=== PATIENT | female | born 1980 | race Caucasian/White ===

== ENCOUNTER 2018-08-10 15:19 | Outpatient (REF) | payer OTHER, SELFPAY ==
[2018-08-10 23:13] LABS: ALT 19 U/L (12-78); AST 14 U/L (15-37); Albumin 3.6 g/dL (3.4-5.0); Alkaline Phosphatase 91 U/L (46-116); Anion Gap 13.8 mmol/L (3-11); BUN 18 mg/dL (7-18); Bilirubin, Total 0.5 mg/dL (0.2-1.0); CO2 24.2 mmol/L (21.0-32.0); CREATININE 0.62 mg/dL (0.55-1.02); Calcium 7.9 mg/dL (8.5-10.1); Chloride 103 mmol/L (98-107); Glucose 88 mg/dL (70-100); Potassium 3.6 mmol/L (3.5-5.1); Sodium 141 mmol/L (136-145); Total Protein 7.1 g/dL (6.4-8.2)
== END 2018-08-10 15:39 ==
LOC: NCHCN 15:19
PROVIDERS: PCP Nurse Practitioner; Visit Provider Specialist/Technologist Athletic Trainer
DX: R10.9 Unspecified abdominal pain (principal); I10 Essential (primary) hypertension; K21.9 Gastro-esophageal reflux disease without esophagitis
CPT/HCPCS: 80053

== ENCOUNTER 2018-08-11 15:47 | Outpatient (CLI) | payer OTHER, SELFPAY ==
[2018-08-11 17:11] LABS: Magnesium 2.1 mg/dL (1.8-2.4); TSH (W/Ref FT4) 2.72 uIU/mL (0.358-3.74)
[2018-08-13 06:22] LABS: Vitamin D 25 Total 14.1 ng/ml (30-100)
[2018-08-13 10:08] LABS: Parathyroid Hormone,Intact 74 pg/ml (19-88)
== END 2018-08-11 16:07 ==
PROVIDERS: PCP Nurse Practitioner; Visit Provider Specialist/Technologist Athletic Trainer
DX: E83.51 Hypocalcemia (principal)
CPT/HCPCS: 36415; 82306; 83735; 83970; 84443

== ENCOUNTER 2018-08-12 07:51 | Outpatient (REF) | payer OTHER, SELFPAY ==
[2018-08-13 13:34] LABS: Helicobacter pylori Ag, Feces Negative (NEGAT)
== END 2018-08-12 08:11 ==
LOC: NCHCN 07:51
PROVIDERS: PCP Nurse Practitioner; Visit Provider Specialist/Technologist Athletic Trainer
DX: K21.9 Gastro-esophageal reflux disease without esophagitis (principal)
CPT/HCPCS: 87338

== ENCOUNTER 2018-08-18 00:59 | Outpatient (CLI) | payer OTHER, SELFPAY ==
--- NOTE | 2018-08-18 07:40 | DI.US_ITS ---
SYMPTOM/DIAGNOSIS: UPPER ABD PAIN, WORSE WITH FATTY MEALS ABDOMEN ULTRASOUND: Routine examination. No priors for comparison. The visualized liver parenchyma is normal in appearance. There is no evidence of cholelithiasis. The common bile duct is of normal diameter. The pancreas and spleen appear intact. No renal abnormality is seen. The abdominal aorta is of normal diameter. Normal appearance of IVC. CONCLUSION: Normal abdominal ultrasound.
== END 2018-08-18 01:19 ==
PROVIDERS: PCP Nurse Practitioner; Visit Provider Specialist/Technologist Athletic Trainer
DX: R10.11 Right upper quadrant pain (principal)
CPT/HCPCS: 76700

== ENCOUNTER 2018-11-04 08:46 | Outpatient (REF) | payer OTHER, SELFPAY ==
[2018-11-04 17:41] LABS: Anion Gap 8.3 mmol/L (3-11); BUN 11 mg/dL (7-18); CO2 26.7 mmol/L (21.0-32.0); CREATININE 0.71 mg/dL (0.55-1.02); Calcium 8.4 mg/dL (8.5-10.1); Chloride 102 mmol/L (98-107); Glucose 116 mg/dL (70-100); Potassium 3.3 mmol/L (3.5-5.1); Sodium 137 mmol/L (136-145)
[2018-11-05 04:42] LABS: Vitamin D 25 Total 25.9 ng/ml (30-100)
== END 2018-11-04 09:06 ==
LOC: NCHCN 08:46
PROVIDERS: PCP Nurse Practitioner; Visit Provider Specialist/Technologist Athletic Trainer
DX: E55.9 Vitamin D deficiency, unspecified (principal); E83.51 Hypocalcemia
CPT/HCPCS: 36415; 80048; 82306

== ENCOUNTER 2018-12-02 00:41 | Outpatient (CLI) | payer OTHER, SELFPAY ==
--- NOTE | 2018-12-02 13:00 | DI.US_ITS ---
SYMPTOMS/DIAGNOSIS: ABDOMINAL PAIN, R10.9, MIDLINE WHEN EXERCISING PELVIC ULTRASOUND: Transabdominal and transvaginal exams were performed. The uterus measures 7.1 x 4.5 x 5.6 cm and is retroverted. No fibroids are seen. The endometrial stripe measures 6 mm in thickness. The ovaries are normal in size and appearance. There is no free fluid or hydronephrosis. IMPRESSION: Pelvic ultrasound is within normal limits.
== END 2018-12-02 01:01 ==
PROVIDERS: PCP Nurse Practitioner; Visit Provider Nurse Practitioner Family
DX: R10.9 Unspecified abdominal pain (principal)
CPT/HCPCS: 76830; 76856

== ENCOUNTER 2019-10-08 14:57 | Outpatient (REF) | payer OTHER, SELFPAY ==
--- NOTE | 2019-10-08 14:15 | PAPFT_PTH ---
PATIENT: Nani Coley LOC: [facility] U#:[id number] AGE/SX: 39/F ROOM: RE10/08/[address]: Azalea William : 1980 BED: DIS: 10/08/2019 SPEC #: [id number] RECD: 10/11/19 13:00 STATUS: JENNY REMarie #: [id number] KELSI: 10/08/19 14:[address]: Azalea William DEPT: [facility] Cytology RECD BY: Ana Urbano ENTERED: 10/11/19 13:00 SP TYPE: PAPFT OTHR DR: Maddie Estrada Tissues: 1 - CX/ENDOCX FOR PAP SMEARS Procedures: PAP THIN PREP/UVM Screening HPV DNA PROBE Comments: [id number]
== END 2019-10-08 15:17 ==
LOC: NCHCN 14:57
PROVIDERS: PCP Nurse Practitioner; Visit Provider Family Medicine
DX: Z12.4 Encounter for screening for malignant neoplasm of cervix (principal); Z11.51 Encounter for screening for human papillomavirus (HPV); Z00.00 Encounter for general adult medical examination without abnormal findings; Z01.419 Encounter for gynecological examination (general) (routine) without abnormal findings
CPT/HCPCS: 88142; 87624

== ENCOUNTER 2019-10-25 12:58 | Outpatient (CLI) | payer OTHER, SELFPAY ==
[2019-10-27 03:15] LABS: COVID-19 RT-PCR Result NEGATIVE (Negative)
== END 2019-10-25 13:18 ==
PROVIDERS: PCP Nurse Practitioner; Visit Provider Nurse Practitioner Family
DX: M79.10 Myalgia, unspecified site (principal); R11.0 Nausea; R11.10 Vomiting, unspecified; R50.9 Fever, unspecified; R53.83 Other fatigue
CPT/HCPCS: U0003

== ENCOUNTER 2020-01-11 19:14 | Outpatient (REF) | payer SELFPAY ==
[2020-01-11 21:11] LABS: HCT 42.8 % (36.0-46.0); HGB 14.6 g/dL (11.2-15.7); MCH 29.1 pg (27.0-33.0); MCHC 34.1 % (32.0-36.0); MCV 85.4 fL (80-95); MPV 10.3 fL (8.0-11.0); Platelet Count 232 10^3/uL (130-400); RBC 5.01 10^6/uL (3.93-5.22); RDW 12.5 % (11.7-14.6); RDW-SD 38.4 fL
[2020-01-11 21:30] LABS: ALT 20 U/L (14-59); AST 18 U/L (15-37); Albumin 3.9 g/dL (3.4-5.0); Alkaline Phosphatase 96 U/L (46-116); Anion Gap 7.9 mmol/L (3-11); BUN 11 mg/dL (7-18); Bilirubin, Total 0.5 mg/dL (0.2-1.0); CO2 28.1 mmol/L (21.0-32.0); CREATININE 0.65 mg/dL (0.55-1.02); Calcium 8.7 mg/dL (8.5-10.1); Chloride 103 mmol/L (98-107); Glucose 87 mg/dL (74-106); Potassium 3.8 mmol/L (3.5-5.1); Sodium 139 mmol/L (136-145); Total Protein 7.5 g/dL (6.4-8.2)
== END 2020-01-11 19:34 ==
LOC: NCHCN 19:14
PROVIDERS: PCP Family Medicine; Visit Provider Family Medicine
DX: E83.51 Hypocalcemia (principal); I10 Essential (primary) hypertension
CPT/HCPCS: 80053; 85027

== ENCOUNTER 2020-08-30 09:56 | Emergency (ER) | payer OTHER, SELFPAY ==
[2020-08-30] VITALS (26 sets, daily range): BP systolic 136–180; BP diastolic 80–101; PULSE 52–71; RESP 10–20; O2SAT 97–100
--- NOTE | 2020-08-30 09:45 | RT.EKG_ITS ---
APPROVED REPORT Exam: Resting ECG Reason for Exam: Palpitations, Patient Location: E HR:67 bpm ECG Measurements Heart Rate 67 AXIS AR 140 P 24 QRSd 97 QRS -8 QT 425 T 49 QTc 439 Conclusion Sinus rhythm...normal P axis, V-rate 60- 99 Ventricular premature complex...V complex w/ short R-R interval
--- NOTE | 2020-08-30 10:19 | ED.GENADUL_ITS ---
Discharge Plan Disposition Patient Disposition: HOME Condition: Stable Discharge Details Clinical Impression: Palpitations, Hypokalemia Primary Care Provider: Azalea William ED Provider: Denisa Zhu Home Meds and New Rx's Prescriptions: Continued omeprazole 20 mg capsule,delayed release(DR/EC) 20 mg PO DAILY RF: 0 cholecalciferol (vitamin D3) 1,000 unit capsule 1,000 unit PO DAILY RF: 0 omeprazole 40 mg capsule,delayed release(DR/EC) 40 mg PO DAILY RF: 0 hydrochlorothiazide 25 mg tablet 25 mg PO BID RF: 0 diltiazem HCl 240 mg capsule,extended release 24 hr 240 mg PO DAILY RF: 0 Discharge Instructions Instructions: Heart Palpitations (ED), Hypokalemia (ED) Additional Instructions: At this time the work-up is largely within normal limits she potassium was slightly low with a level of 3.3. You are given 40 mEq of potassium p.o. here in the department. Follow up with primary care provider in 3-5 days. Return to ED sooner if any worsening or concerns. Increase oral fluids. You are having an occasional PVC on cardiac monitoring. Please return if any chest pain, dizziness or any worsening. Referrals: Azalea William [Primary Care Provider] - Discharge Data Discharge Date/Time-TO BE ENTERED AT DEPARTURE: 08/30/20 13:19 Medical Decision Making 39-year-old female with a family history of atrial fibrillation who takes diltiazem every 3 days due to dizziness presents with palpitations which have been ongoing since yesterday intermittently. Patient denies any chest pain she does describe dyspnea denies any fever chills dizziness. She reports feeling exhausted. She was sent here by her PCP [facility]. She does have an occasional PVC on EKG. She does report that she can feel the PVC. She has a past medical history of hypertension, GERD, abdominal pain, anxiety EKG shows sinus rhythm with PVC, at this time work-up ordered including CBC, CMP, serial troponins. Work-up is largely benign and initial troponin within normal limits. Potassium 3.3 did give oral potassium 40 mEq p.o. x1 here in department. Patient remained hemodynamically stable throughout stay no further arrhythmias noted. Instructed to follow-up with PCP in 3 to 5 days. Upon reevaluation patient feeling better discussed hypokalemia and follow-up verbalized understanding. HPI General Mode of arrival: ambulatory . Date/Time Provider Initiated Documentation: 08/30/20 09:58 . Limitations to Documentation: no limitations . HPI Narrative: 39-year-old female with a family history of atrial fibrillation who takes diltiazem every 3 days due to dizziness presents with palpitations which have been ongoing since yesterday intermittently. Patient denies any chest pain she does describe dyspnea denies any fever chills dizziness. She reports feeling exhausted. She was sent here by her [facility]. She does have an occasional PVC on EKG. She does report that she can feel the PVC. She has a past medical history of hypertension, GERD, abdominal pain, anxiety Related Data Home Medications Medication Instructions Recorded Confirmed cholecalciferol (vitamin D3) 25 1,000 unit PO DAILY 03/04/19 08/30/20 mcg (1,000 unit) capsule diltiazem HCl 240 mg capsule,24 240 mg PO DAILY 03/04/19 08/30/20 hr,extended release hydrochlorothiazide 25 mg tablet 25 mg PO BID 03/04/19 08/30/20 omeprazole 20 mg capsule,delayed 20 mg PO DAILY 03/04/19 release omeprazole 40 mg capsule,delayed 40 mg PO DAILY 03/04/19 08/30/20 release Allergies Allergy/AdvReac Type Severity Reaction Status Date / Time lisinopril Allergy Severe Headache Verified 08/30/20 10:19 General Stated Complaint: Palpitatns LUIS: 3 Review of Systems Narrative: Constitutional: Negative for weight loss, alert and oriented, well groomed, normal body habitus, appears comfortable. HEENT: Denies trauma, headaches, blurry vision, nasal discharge, sore throat, trouble swallowing. Chest: Denies chest pain. Positive history of hypertension, palpitations since yesterday, does take diltiazem last taken on Friday. Respiratory: Denies Shortness of breath, cough, hemoptysis. GI: Denies abdominal pain, nausea, vomiting, diarrhea, constipation. : Denies dysuria, hematuria, flank pain, rectal bleeding. Neuro: Denies dizziness, blurry vision, weakness, syncope, headache or facial numbness. Hematologic: Denies easy bruising, intolerance to heat or cold, hair loss. [facility] Medical History Abdominal pain GERD (gastroesophageal reflux disease) Hypertension Hypocalcemia Ovarian cyst Vitamin D deficiency Social History Smoking risk assessment performed?: No Exam Narrative Exam Narrative: Constitutional: Alert and oriented x3. Appears stated age. Normal body habitus. Head: Normocephalic, no trauma. Eyes: Pupils PERRLA, Red reflex noted, EOM's intact. Eyelids symmetrical without lesions, discharge, or swelling. ENT: Bilateral TM's WNL, External ear normal to inspection, no mastoid TTP, swelling, or erythema, Nasal turbinates WNL, no nasal discharge. Normal dentition, Posterior pharynx WNL, no exudate. Chest: RRR, occasional PVC normal S1, S2, distal pulses intact. Resp: Lungs clear to auscultation bilaterally, no wheezes, rales, or rhonchi. Musculoskeletal: Normal gait, 5/5 strength to all four extremities. Skin: No suspicious rashes or lesions. Capillary refill less than 2 sec. Neurologic: Cranial nerves II-XII intact. Alert and oriented x 3. DTR's intact. Hematologic/Lymphatic: No ecchymosis, no lymphadenopathy. Course Vital Signs Vital signs: Vital Signs Pulse 69 08/30/20 10:15 Respiratory Rate 16 08/30/20 10:15 Blood Pressure 180/89 H 08/30/20 10:15 Pulse Oximetry 100 08/30/20 10:15 Pulse 69 08/30/20 10:15 Respiratory Rate 16 08/30/20 10:15 Blood Pressure 180/89 H 08/30/20 10:15 Blood Pressure Position Sitting 08/30/20 10:15 Pulse Oximetry 100 08/30/20 10:15 Oxygen Delivery Method Room Air 08/30/20 10:15 Oxygen Flow Rate 0 08/30/20 10:15
[2020-08-30 10:36] LABS: Abs Immature Grans 0.02 10^3/uL (0.0-0.06); Absolute Basophil Count 0.02 10^3/uL (0.0-0.2); Absolute Eosinophil Count 0.26 10^3/uL (0.0-0.7); Absolute Lymphocyte Count 1.92 10^3/uL (1.2-3.4); Absolute Monocyte Count 0.79 10^3/uL (0.1-0.8); Absolute Neutrophil Count 3.74 10^3/uL (1.2-6.7); Basophils % 0.3; Eosinophils % 3.9; HCT 42.8 % (36.0-46.0); HGB 14.2 g/dL (11.2-15.7); Immature Grans % 0.3; Lymphocytes % 28.4; MCH 28.5 pg (27.0-33.0); MCHC 33.2 % (32.0-36.0); MCV 85.9 fL (80-95); MPV 9.7 fL (8.0-11.0); Monocytes % 11.7; Neutrophils % 55.4; Nucleated RBC 0 %; Platelet Count 224 10^3/uL (130-400); RBC 4.98 10^6/uL (3.93-5.22); RDW 12.3 % (11.7-14.6); RDW-SD 38.6 fL; WBC 6.75 10^3/uL (4.4-10.8)
[2020-08-30 11:09] LABS: ALT 19 U/L (14-59); AST 17 U/L (15-37); Albumin 3.7 g/dL (3.4-5.0); Alkaline Phosphatase 86 U/L (46-116); Anion Gap 7.6 mmol/L (3-11); BUN 14 mg/dL (7-18); Bilirubin, Total 0.4 mg/dL (0.2-1.0); CO2 30.4 mmol/L (21.0-32.0); CREATININE 0.7 mg/dL (0.55-1.02); Calcium 8.5 mg/dL (8.5-10.1); Chloride 103 mmol/L (98-107); Glucose 104 mg/dL (74-106); Potassium 3.3 mmol/L (3.5-5.1); Sodium 141 mmol/L (136-145); Total Protein 7.5 g/dL (6.4-8.2); Troponin I < 0.05 ng/mL (<0.06)
[2020-08-30] MEDS: Potassium Chloride 20 MEQ TABCR 40 MEQ PO (11:29)
== END 2020-08-30 13:19 | disposition home or self-care (01) ==
PROVIDERS: Emergency Provider Registered Nurse Emergency; PCP Family Medicine
DX: R00.2 Palpitations (principal); E87.6 Hypokalemia
CPT/HCPCS: 36415; 80053; 93005; 99283; 83735; 84484; 85025; 93010

== ENCOUNTER 2021-02-28 16:38 | Outpatient (REF) | payer OTHER, SELFPAY ==
[2021-02-28 22:15] LABS: HCT 40.5 % (36.0-46.0); HGB 13.3 g/dL (11.2-15.7); MCH 28.5 pg (27.0-33.0); MCHC 32.8 % (32.0-36.0); MCV 86.9 fL (80-95); MPV 10.4 fL (8.0-11.0); Platelet Count 243 10^3/uL (130-400); RBC 4.66 10^6/uL (3.93-5.22); RDW 11.9 % (11.7-14.6); RDW-SD 37.9 fL; WBC 7.41 10^3/uL (4.4-10.8)
[2021-02-28 22:48] LABS: ALT 17 U/L (14-59); AST 15 U/L (15-37); Albumin 3.9 g/dL (3.4-5.0); Alkaline Phosphatase 90 U/L (46-116); Anion Gap 7.5 mmol/L (3-11); BUN 16 mg/dL (7-18); Bilirubin, Total 0.3 mg/dL (0.2-1.0); CO2 29.5 mmol/L (21.0-32.0); CREATININE 0.6 mg/dL (0.55-1.02); Calcium 8.3 mg/dL (8.5-10.1); Chloride 103 mmol/L (98-107); FREE T4 1.04 ng/dL (0.76-1.46); Glucose 85 mg/dL (74-106); Potassium 3.4 mmol/L (3.5-5.1); Sodium 140 mmol/L (136-145); TSH 1.13 uIU/mL (0.36-3.74); Total Protein 7.4 g/dL (6.4-8.2)
== END 2021-02-28 16:39 | disposition home or self-care (01) ==
LOC: NCHCN 16:38
PROVIDERS: PCP Family Medicine; Visit Provider Nurse Practitioner Family
DX: R00.2 Palpitations (principal)
CPT/HCPCS: 80053; 85027; 84439; 84443

== ENCOUNTER 2021-03-02 09:25 | Outpatient (CLI) | payer OTHER, SELFPAY ==
--- NOTE | 2021-03-26 08:37 | W.CARDEVENT ---
Date of service: 03/26/21 Time of Service: 08:37 Cardiac Event Recorder Referring Provider:: Kaylin Bates Indications:: Palpitations Cardiac Event Note: This is a 14-day event monitor ordered for palpitations Predominant rhythm was sinus with an average heart rate of 63. Minimum was 48, maximum 125 There were no supraventricular dysrhythmias There were very rare ventricular ectopic beats There was no atrial fibrillation, no high-grade AV block, no pauses greater than 3 seconds No patient symptoms were reported
== END 2021-03-02 09:26 | disposition home or self-care (01) ==
PROVIDERS: PCP Family Medicine; Visit Provider Nurse Practitioner Family
DX: R00.2 Palpitations (principal)
CPT/HCPCS: 93246

== ENCOUNTER 2021-04-23 15:51 | Outpatient (REF) | payer OTHER, SELFPAY ==
[2021-04-26 15:24] LABS: 5-Hydroxyindoleacetic Acid, U 6.5 mg/24 h (<=7.1); Urine Volume 2500 mL
[2021-04-26 20:47] LABS: Metanephrines, U 150 mcg/24 h; Normetanephrine, U 333 mcg/24 h; Total Metanephrines, U 483 mcg/24 h; Urine Volume 2500 mL
[2021-04-27 12:02] LABS: Urine Volume 2500 mL
== END 2021-04-23 15:52 | disposition home or self-care (01) ==
LOC: NCHCN 15:51
PROVIDERS: PCP Family Medicine; Visit Provider Nurse Practitioner Family
DX: R00.2 Palpitations (principal); R23.2 Flushing
CPT/HCPCS: 81050; 82384; 83497; 83835

== ENCOUNTER 2022-05-10 01:10 | Outpatient (CLI) | payer OTHER, SELFPAY ==
[2022-05-10 15:44] LABS: ALT 19 U/L (14-59); AST 21 U/L (15-37); Albumin 3.7 g/dL (3.4-5.0); Alkaline Phosphatase 95 U/L (46-116); Anion Gap 7.8 mmol/L (3-11); BUN 13 mg/dL (7-18); Bilirubin, Total 0.2 mg/dL (0.2-1.0); CO2 31.2 mmol/L (21.0-32.0); CREATININE 0.9 mg/dL (0.55-1.02); Calcium 8.4 mg/dL (8.5-10.1); Chloride 102 mmol/L (98-107); Estimated GFR 81.86 (mL/min/1.73m2); Glucose 101 mg/dL (74-106); Sodium 141 mmol/L (136-145); Total Protein 7.1 g/dL (6.4-8.2)
[2022-05-10 15:50] LABS: Potassium 2.7 mmol/L (3.5-5.1)
[2022-05-15 17:50] LABS: Renin Activity, Plasma <0.6 ng/mL/h
== END 2022-05-10 01:11 | disposition home or self-care (01) ==
LOC: LBO 01:11
PROVIDERS: PCP Family Medicine; Visit Provider Nurse Practitioner Family
DX: I10 Essential (primary) hypertension (principal)
CPT/HCPCS: 36415; 80053; 82088; 84244

== ENCOUNTER 2022-05-10 16:29 | Emergency (ER) | payer OTHER, SELFPAY ==
[2022-05-10] VITALS (102 sets, daily range): BP systolic 141–189; BP diastolic 84–102; PULSE 54–95; RESP 11–26; TEMP 36.7–36.8; O2SAT 96–100
--- NOTE | 2022-05-10 16:30 | RT.EKG_ITS ---
APPROVED REPORT Exam: Resting ECG Reason for Exam: palpitations Patient Location: E HR:71 bpm ECG Measurements Heart Rate 71 AXIS VA 140 P 30 QRSd 98 QRS -12 QT 418 T 43 QTc 458 Conclusion Sinus rhythm...normal P axis, V-rate 60- 99 Atrial premature complexes in couplets...pair SV complexes w/ short R-R Sinus pause...long R-R interval, normal QRSd Normal [place] I have reviewed and interpreted ECG and agree with software generated interpretation. There are no significant changes compared to prior EKG performed on 08/30/2020 at 10:14.
--- NOTE | 2022-05-10 16:37 | W.ED.GENAD ---
Discharge Plan Disposition Patient Disposition: Home Discharge Details Clinical Impression: Hypokalemia Primary Care Provider: Azalea William ED Provider: Ronak Esteves [place] Meds and New Rx's Prescriptions: New potassium chloride 20 mEq tablet extended release 20 meq PO BID Qty: 5 0RF Continued hydrochlorothiazide 25 mg tablet 25 mg PO BID diltiazem HCl 240 mg capsule,extended release 24 hr 240 mg PO DAILY Discharge Instructions Instructions: Hypokalemia (ED) Additional Instructions: Your potassium was low this afternoon on lab check. You received IV and oral potassium this evening. Your potassium is better but still a little low. We will continue you on potassium twice a day over the weekend. Please sweet pickled fruit maker your prescription tomorrow. Call your primary care on Friday for repeat potassium draw. Return to ED for any tingling, weakness, muscle cramping, syncope, other concerns. Medical Decision Making I reviewed the patient's CMP from this afternoon. She has normal kidney function and all of her other electrolytes were fine. I have added a magnesium to this draw. We will plan 20 mEq of potassium IV and 40 orally with repeat potassium level 2 hours postinfusion. Patient's EKG is sinus rhythm with PAC and some pauses otherwise normal intervals and axis, normal ST. Magnesium level was normal from this afternoon. Patient received her potassium and a repeat level was drawn 1 hour after the second infusion. Potassium is now 3.3 which is still low but reasonable for discharge. We will continue p.o. potassium supplementation over the weekend. She will follow-up with primary care Friday for repeat potassium. Return precautions provided. Lab Data Lab results reviewed: Yes I reviewed the patient's lab results. ECG Data Attestation: I personally reviewed and interpreted this ECG (s) as follows: Prior ECG tracings: available for review Interpretation: see EKG, no change HPI General Mode of arrival: ambulatory. Date/Time Provider Initiated Documentation: 05/10/22 16:37. Limitations to Documentation: no limitations. Information obtained by: patient. HPI Narrative: Patient presents to ED from home on referral from her PCP for low potassium. Patient reports having blood work done for another concern. She was called this afternoon and told to come to ED for a low potassium of 2.9. Patient reports having more palpitations than usual for the last week but really nothing out of the ordinary otherwise. She has been ill this month with sinus and bronchitis type symptoms and has been on prednisone and 2 different antibiotics. Currently off everything. She does continue hydrochlorothiazide for her blood pressure. She has had palpitations and had a 14-day event monitor which was unremarkable. She denies having any vomiting or diarrhea. She states that she has been eating and drinking well. She has no paresthesias, weakness, cramps. Related Data Home Medications Medication Instructions Recorded Confirmed diltiazem HCl 240 mg capsule,24 240 mg PO DAILY 03/04/19 05/10/22 hr,extended release hydrochlorothiazide 25 mg tablet 25 mg PO BID 03/04/19 05/10/22 potassium chloride 20 mEq 20 meq PO BID #5 tabs 05/10/22 tablet,extended release Previous Rx's Medication Instructions Recorded potassium chloride 20 mEq 20 meq PO BID #5 tabs 05/10/22 tablet,extended release Allergies Allergy/AdvReac Type Severity Reaction Status Date / Time lisinopril Allergy Severe Headache Verified 08/30/20 10:19 General LUIS: 3 Review of Systems Narrative: per HPI PFSH All Active Problems (Updated 05/10/22 @ 21:14 by Ronak Esteves MD) Palpitations (Acute) Hypokalemia (Acute) Fatigue (Acute) Myalgia (Acute) Vomiting (Acute) Nausea (Acute) Fever (Acute) Medical History (Updated 05/10/22 @ 21:14 by Ronak Esteves MD) GERD (gastroesophageal reflux disease) Hypertension Hypocalcemia Ovarian cyst Vitamin D deficiency Social History Smoking/Tobacco Use Status: Never Smoking risk assessment performed?: Yes Alcohol Intake: current Alcohol Intake frequency: holidays/special occasions only Substance use type: does not use Do you feel safe at home: Yes Do you feel safe in your relationship?: Yes Exam Narrative Exam Narrative: Const: WDWN female in NAD. HEENT: NC/AT. Normal facial exam. Eyes: Normal conjunctiva and sclera. Neck: Supple. Trachea midline. Lungs: Normal respiratory effort. Lungs are clear. Cor: RRR without murmur/gallop. Good radial pulses. GI: Soft. NT/ND. No guarding or rebound. Neuro: A+O x 3. Normal speech, mentation, gait. Cranial nerves II - XII grossly intact. No gross motor or sensory deficit. Ext: No C/C/E. Skin: Warm and dry without rash.
[2022-05-10] MEDS: Potassium Chloride 20 MEQ TABCR 40 MEQ PO (17:20)
[2022-05-10] MEDS: POTASSIUM CHLORIDE 10 MEQ/100 ML BAG 100 MEQ IVPB ×2 (17:20→18:29)
[2022-05-10] MEDS: Normal Saline 1,000 ML 150 ML IV (17:21)
[2022-05-10 21:04] LABS: Potassium 3.3 mmol/L (3.5-5.1)
== END 2022-05-10 21:24 | disposition home or self-care (01) ==
PROVIDERS: Emergency Provider Emergency Medicine; PCP Family Medicine
DX: E87.6 Hypokalemia (principal); I49.1 Atrial premature depolarization; I10 Essential (primary) hypertension
CPT/HCPCS: 93005; 96365; 96366; 99284; 83735; 84132; 93010; J3480

== ENCOUNTER 2022-05-13 16:33 | Outpatient (REF) | payer OTHER, SELFPAY ==
[2022-05-13 20:51] LABS: Potassium 3.4 mmol/L (3.5-5.1)
== END 2022-05-13 16:34 | disposition home or self-care (01) ==
LOC: NCHCN 16:33
PROVIDERS: PCP Family Medicine; Visit Provider Family Medicine
DX: E87.6 Hypokalemia (principal)
CPT/HCPCS: 84132

== ENCOUNTER 2022-06-10 15:57 | Outpatient (REF) | payer OTHER, SELFPAY ==
[2022-06-10 22:03] LABS: Anion Gap 7.9 mmol/L (3-11); BUN 11 mg/dL (7-18); CO2 29.1 mmol/L (21.0-32.0); CREATININE 0.7 mg/dL (0.55-1.02); Calcium 9.1 mg/dL (8.5-10.1); Chloride 104 mmol/L (98-107); Estimated GFR 110.67 (mL/min/1.73m2); Glucose 95 mg/dL (74-106); Potassium 3.7 mmol/L (3.5-5.1); Sodium 141 mmol/L (136-145)
== END 2022-06-10 15:58 | disposition home or self-care (01) ==
LOC: NCHCN 15:57
PROVIDERS: PCP Family Medicine; Visit Provider Nurse Practitioner Family
DX: E87.6 Hypokalemia (principal)
CPT/HCPCS: 80048

== ENCOUNTER 2022-12-12 18:18 | Outpatient (REF) | payer OTHER, SELFPAY ==
[2022-12-12 15:37] LABS: MCH 29.8 pg (27.0-33.0); MCHC 34.8 % (32.0-36.0); MCV 86 fL (80-95); MPV 10.5 fL (8.0-11.0); Platelet Count 262 10^3/uL (130-400); RBC 5.37 10^6/uL (3.93-5.22); RDW 11.6 % (11.7-14.6); RDW-SD 36.2 fL; WBC 6.35 10^3/uL (4.4-10.8)
[2022-12-12 16:15] LABS: ALT 20 U/L (14-59); AST 16 U/L (15-37); Albumin 4.3 g/dL (3.4-5.0); Alkaline Phosphatase 95 U/L (46-116); Anion Gap 10.9 mmol/L (3-11); BUN 13 mg/dL (7-18); Bilirubin, Total 0.7 mg/dL (0.2-1.0); CO2 26.1 mmol/L (21.0-32.0); CREATININE 0.8 mg/dL (0.55-1.02); Calcium 9.2 mg/dL (8.5-10.1); Calculated LDL 166 mg/dL (<100); Chloride 101 mmol/L (98-107); Cholesterol 241 mg/dL (<200); Glucose 85 mg/dL (74-106); HDL Cholesterol 59 mg/dL (40-60); Potassium 3.8 mmol/L (3.5-5.1); Sodium 138 mmol/L (136-145); Total Protein 8.1 g/dL (6.4-8.2); Triglyceride 83 mg/dL (<150)
[2022-12-12 16:36] LABS: Vitamin D 25 Total 62.1 ng/mL (30-100)
== END 2022-12-12 18:19 | disposition home or self-care (01) ==
LOC: NCHCN 18:18
PROVIDERS: PCP Family Medicine; Visit Provider Nurse Practitioner Family
DX: Z00.00 Encounter for general adult medical examination without abnormal findings (principal); I10 Essential (primary) hypertension; E83.51 Hypocalcemia; E87.6 Hypokalemia; E55.9 Vitamin D deficiency, unspecified
CPT/HCPCS: 80053; 80061; 82306; 85027

== ENCOUNTER → 2022-12-16 01:02 | Outpatient (CLI) | payer OTHER, SELFPAY ==
--- NOTE | 2022-12-16 | DI.MAMMO_ITS ---
Exam(s) MAMMO SCREENING EXAM: MAMMO SCREENING CLINICAL HISTORY: SCREENING, Z12.31. TECHNIQUE: Bilateral full field digital CC and MLO mammographic images were obtained with 3D tomosyn thesis and utilizing computer aided detection (CAD). COMPARISON: None. This is a baseline mammogram on this 42-year-old patient FINDINGS: Fibroglandular tissue pattern is dense bilaterally, this somewhat decreasing the sensitivity of the m ammogram for finding hidden underlying lesions. 3D imaging reveals multiple nodules bilaterally. The largest in the left breast measures approximate ly 3 by 2.7 cm, located 2 cm in from the nipple. Another smaller 1.3 by 0.8 cm is located more super iorly, proximally 4 cm in from the nipple. In the opposite-right breast there are multiple nodules also evident, largest measuring approximately 1.0 x 0.9 cm and located 2.5 cm in from the nipple on the MLO view. There are no malignant-appearing microcalcification groups in either breast. No significant architectural distortion or skin thickening-traction. IMPRESSION: Dense bilateral fibroglandular tissue. Multiple bilateral well-defined nodules, the largest measurin g approximately 3 x 2.7 cm. Bilateral breast ultrasound recommended BI-RADS Category 0 - Assessment Incomplete: Need additional imaging evaluation Breast Density - Category C - Heterogeneously dense Breast density Category C or D implies that the patient has dense breast tissue. Dense breast tissue can make it harder to find cancer on a mammogram. Dense breast tissue is also associated with an incr eased risk of breast cancer. This information about the result of the mammogram report was provided to the patient to raise their awareness. Use this report when you speak with the patient about their risks for breast cancer, which includes their family history. At that time, you may recommend additional screening tests (Ultrasoun d or MRI) as these tests may add significant information. A negative radiographic report should not delay biopsy if a dominant or clinically suspicious mass is present. Up to ten percent of cancers are not identified on mammography. A negative report may reinforce clinical impression. Adenosis and dense breasts may obscure an underlying neoplasm. False positive reports average 6 to 10%. Patient will receive a letter notifying them of these results.
== END ==
PROVIDERS: PCP Family Medicine; Visit Provider Nurse Practitioner Family
DX: Z12.31 Encounter for screening mammogram for malignant neoplasm of breast (principal); N63.10 Unspecified lump in the right breast, unspecified quadrant; N63.20 Unspecified lump in the left breast, unspecified quadrant
CPT/HCPCS: 77063; 77067

== ENCOUNTER 2023-12-19 10:21 | Outpatient (REF) | payer OTHER, SELFPAY ==
[2023-12-19 15:13] LABS: HCT 42.1 % (36.0-46.0); HGB 14.5 g/dL (11.2-15.7); MCH 29.8 pg (27.0-33.0); MCHC 34.4 % (32.0-36.0); MCV 87 fL (80-95); MPV 10.2 fL (8.0-11.0); Platelet Count 217 10^3/uL (130-400); RBC 4.86 10^6/uL (3.93-5.22); RDW 11.7 % (11.7-14.6); RDW-SD 37.2 fL; WBC 6.53 10^3/uL (4.4-10.8)
[2023-12-19 16:09] LABS: Iron 178 ug/dL (50-170); Total Iron Binding Capacity 381 ug/dL (250-450); Transferrin Sat 47 % (15-50)
[2023-12-19 16:10] LABS: ALT 17 U/L (14-59); AST 15 U/L (15-37); Alkaline Phosphatase 95 U/L (46-116); Anion Gap 7.4 mmol/L (3-11); BUN 11 mg/dL (7-18); Bilirubin, Total 0.78 mg/dL (0.2-1.0); CO2 26.6 mmol/L (21.0-32.0); CREATININE 0.7 mg/dL (0.55-1.02); Calcium 8.9 mg/dL (8.5-10.1); Calculated LDL 142 mg/dL (<100); Chloride 104 mmol/L (98-107); Cholesterol 209 mg/dL (<200); Ferritin 41 ng/mL (8-252); Glucose 87 mg/dL (74-106); HDL Cholesterol 53 mg/dL (40-60); Potassium 4.1 mmol/L (3.5-5.1); Sodium 138 mmol/L (136-145); TSH (W/Ref FT4) 1.83 uIU/mL (0.36-3.74); Total Protein 7.5 g/dL (6.4-8.2); Triglyceride 71 mg/dL (<150); Vitamin D 25 Total 43.7 ng/mL (30-100)
[2023-12-19 16:14] LABS: COMMENT (LAB VIEW ONLY) 28.01 mg/dL; Microalb ug/mg Crea 11.4 ug/mg Cr
== END 2023-12-19 10:22 | disposition home or self-care (01) ==
LOC: NCHCN 10:21
PROVIDERS: PCP Family Medicine; Visit Provider Nurse Practitioner Family
DX: Z00.00 Encounter for general adult medical examination without abnormal findings (principal); E55.9 Vitamin D deficiency, unspecified; I10 Essential (primary) hypertension; N92.1 Excessive and frequent menstruation with irregular cycle
CPT/HCPCS: 80053; 80061; 82306; 85027; 82043; 82570; 82728; 83540; 83550; 84443

== ENCOUNTER 2024-12-24 15:54 | Outpatient (REF) | payer OTHER, SELFPAY ==
[2024-12-24 14:40] LABS: HCT 43.9 % (36.0-46.0); HGB 15.2 g/dL (11.2-15.7); MCH 29.4 pg (27.0-33.0); MCHC 34.6 % (32.0-36.0); MCV 85 fL (80-95); MPV 10.5 fL (8.0-11.0); Platelet Count 235 10^3/uL (130-400); RBC 5.17 10^6/uL (3.93-5.22); RDW 11.7 % (11.7-14.6); RDW-SD 35.8 fL; WBC 6.09 10^3/uL (4.4-10.8)
[2024-12-24 14:53] LABS: ALT 15 U/L (14-59); AST 14 U/L (15-37); Albumin 4.2 g/dL (3.4-5.0); Alkaline Phosphatase 103 U/L (46-116); Anion Gap 10.3 mmol/L (3-11); BUN 17 mg/dL (7-18); Bilirubin, Total 0.5 mg/dL (0.2-1.0); CO2 26.7 mmol/L (21.0-32.0); Calcium 8.5 mg/dL (8.5-10.1); Calculated LDL 162 mg/dL (<100); Chloride 103 mmol/L (98-107); Cholesterol 227 mg/dL (<200); Estimated GFR 112.73 (mL/min/1.73m2); Glucose 86 mg/dL (74-106); HDL Cholesterol 50 mg/dL (>or=50); Potassium 4.2 mmol/L (3.5-5.1); Sodium 140 mmol/L (136-145); Total Protein 7.6 g/dL (6.4-8.2); Triglyceride 79 mg/dL (<150)
== END 2024-12-24 15:55 | disposition home or self-care (01) ==
LOC: NCHCN 15:54
PROVIDERS: PCP Family Medicine; Visit Provider Nurse Practitioner Family
DX: Z00.00 Encounter for general adult medical examination without abnormal findings (principal); E78.5 Hyperlipidemia, unspecified
CPT/HCPCS: 80053; 80061; 85027

== ENCOUNTER 2024-12-31 12:18 | Emergency (ER) | payer OTHER, SELFPAY ==
[2024-12-31] VITALS (39 sets, daily range): BP systolic 110–145; BP diastolic 61–91; PULSE 50–88; RESP 10–23; TEMP 36.5; O2SAT 96–100
--- NOTE | 2024-12-31 12:00 | RT.EKG_ITS ---
APPROVED REPORT Exam: Resting ECG Reason for Exam: syncope Patient Location: E HR:54 bpm ECG Measurements Heart Rate 54 AXIS [place] 146 P 22 QRSd 101 QRS 5 QT 452 T 57 QTc 427 Conclusion Sinus bradycardia...rate< 60
[2024-12-31 12:49] LABS: Abs Immature Grans 0.03 10^3/uL (0.0-0.06); HCT 40.6 % (36.0-46.0); HGB 13.9 g/dL (11.2-15.7); Immature Grans % 0.3 %; MCH 28.7 pg (27.0-33.0); MCHC 34.2 % (32.0-36.0); MCV 84 fL (80-95); MPV 9.4 fL (8.0-11.0); Platelet Count 216 10^3/uL (130-400); RBC 4.85 10^6/uL (3.93-5.22); RDW 11.6 % (11.7-14.6); RDW-SD 35.2 fL; WBC 11.15 10^3/uL (4.4-10.8)
[2024-12-31 13:13] LABS: ALT 18 U/L (14-59); AST 13 U/L (15-37); Albumin 3.9 g/dL (3.4-5.0); Alkaline Phosphatase 106 U/L (46-116); Anion Gap 9.3 mmol/L (3-11); BUN 22 mg/dL (7-18); Bilirubin, Total 0.5 mg/dL (0.2-1.0); CO2 28.7 mmol/L (21.0-32.0); Calcium 8.4 mg/dL (8.5-10.1); Chloride 100 mmol/L (98-107); Estimated GFR 108.62 (mL/min/1.73m2); Glucose 103 mg/dL (74-106); Magnesium 1.9 mg/dL (1.8-2.4); Potassium 4.4 mmol/L (3.5-5.1); Sodium 138 mmol/L (136-145); TSH (W/Ref FT4) 3.56 uIU/mL (0.36-3.74); Total Protein 7.6 g/dL (6.4-8.2); Troponin I 11 ng/L (<or=51)
[2024-12-31 14:16] LABS: Troponin I 12 ng/L (<or=51)
[2024-12-31] MEDS: Lactated Ringers 1,000 ML 1000 ML IV (14:42)
--- NOTE | 2024-12-31 14:47 | W.ED.GENAD ---
Discharge Plan Disposition Patient Disposition: Home Condition: Stable Discharge Details Clinical Impression: Syncope Primary Care Provider: Azalea William ED Provider: Chadwick Granados Home Meds and New Rx's Prescriptions: Continued hydrochlorothiazide 25 mg tablet 25 mg PO BID diltiazem HCl 240 mg capsule,extended release 24 hr 240 mg PO DAILY norgestimate-ethinyl estradiol 0.25-0.035 mg tablet 1 tab PO DAILY Patient Comments: TAKE ONE TABLET BY MOUTH EVERY DAY Discontinued potassium chloride 20 mEq tablet extended release 20 meq PO BID Qty: 5 0RF Discharge Instructions Instructions: Fainting, Adult ED Additional Instructions: You were seen today in the emergency department for syncope. Please follow-up with your primary care physician. Please call today to arrange timely follow-up. Additional outpatient diagnostic testing including outpatient cardiac monitoring may be indicated. Please be sure to discuss this with your doctor. Return to the emergency department immediately for any worsening or new concerning symptoms. Referrals: Azalea William [Primary Care Provider, Medicine] Discharge Data Discharge Date/Time-TO BE ENTERED AT DEPARTURE: 12/31/24 15:51 HPI General Date/Time Provider Initiated Documentation: 12/31/24 12:28. Limitations to Documentation: no limitations. Information obtained by: patient. HPI Narrative: HISTORY OF PRESENT ILLNESS This is a 44-year-old female with a history of high blood pressure presenting with syncope. The patient experienced a fainting episode today, preceded by nausea. Initially, she attributed the nausea to hunger or fatigue. Despite feeling unwell, she continued with her work until she felt on the verge of fainting. A coworker assisted her and she lost consciousness, coworker lowered her to floor. Upon regaining consciousness, she was sweating profusely and disoriented. She reports no pain but feels fatigued. She has had syncopal episodes in the past, always occurring at night, but it has been over a year since the last one. These episodes typically involve waking up feeling nauseous, needing to use the bathroom, and then fainting after taking a few steps. This is the first time such an episode has occurred during the day. She reports no recent illness, fever, chills, or travel. She also reports no possibility of as she has not been sexually active recently. She has undergone cardiac monitoring in the past, which did not reveal any abnormalities. She does not smoke or use drugs. She reports no tongue biting or urinary incontinence during the episode. She reports no recent urinary symptoms. She has been drinking normal amounts of fluids but feels dry after the episode. She is currently on medication for HTN and acid reflux. Related Data Home Medications ?Medication ?Instructions ?Recorded ?Confirmed diltiazem HCl 240 mg capsule,24 240 mg PO DAILY 03/04/19 12/31/24 hr,extended release hydrochlorothiazide 25 mg tablet 25 mg PO BID 03/04/19 12/31/24 norgestimate 0.25 mg-ethinyl 1 tab PO DAILY 12/31/24 12/31/24 estradiol 0.035 mg tablet Allergies Allergy/AdvReac Type Severity Reaction Status Date / Time lisinopril Allergy Severe Headache Verified 12/31/24 12:44 General Stated Complaint: [id number] LUIS: 3 Exam Const General: cooperative and no acute distress HENMT Head: normocephalic and atraumatic Mouth: moist mucous membranes Eyes Conjunctivae: normal conjunctivae Sclera: normal sclerae Neck Neck: trachea midline and supple Resp Auscultation: clear to auscultation bilaterally, no rales, no rhonchi and no wheezes Cardio Rate: regular rate and not tachycardic Rhythm: regular rhythm Heart Sounds: no gallops, no murmurs and no rubs GI Palpation: soft, not firm, no guarding, no masses, not rigid and nontender Skin General skin exam: no rashes or lesions noted Neuro General: patient alert, patient awake, patient oriented x3 and tone normal Extrem General: no calf tenderness and no edema Psych Appearance: grossly normal Mental Status: mental status grossly normal Speech and Movement: speech and movement normal Course Vital Signs Vital signs: Vital Signs Temperature 36.5 C 12/31/24 12:22 Pulse 61 12/31/24 12:22 Respiratory Rate 18 12/31/24 12:22 Blood Pressure 131/83 12/31/24 12:22 Pulse Oximetry 100 12/31/24 12:22 Temperature 36.5 C 12/31/24 12:22 Temperature Source Tympanic 12/31/24 12:22 Pulse 69 12/31/24 14:40 Pulse 50 L 12/31/24 14:40 Respiratory Rate 16 12/31/24 14:40 Respiratory Effort Normal, Non-Labored 12/31/24 13:00 Respiratory Depth Normal 12/31/24 13:00 Respiratory Pattern Normal 12/31/24 13:00 Blood Pressure 138/90 12/31/24 14:31 Blood Pressure Mean 102 12/31/24 14:31 Pulse Oximetry 99 12/31/24 14:40 Oxygen Delivery Method Room Air 12/31/24 12:22 Oxygen Flow Rate 0 12/31/24 12:22 Pain Level 0 12/31/24 12:22 Lab/Test Results Lab/Test Results: Laboratory Tests Range/Units 12/31/24 12/31/24 12:42 13:45 WBC (4.4-10.8) 10^3/uL 11.15 H RBC (3.93-5.22) 10^6/uL 4.85 Hgb (11.2-15.7) g/dL 13.9 Hct (36.0-46.0) % 40.6 MCV (80-95) fL 84 MCH (27.0-33.0) pg 28.7 MCHC (32.0-36.0) % 34.2 RDW (11.7-14.6) % 11.6 L Plt Count (130-400) 10^3/uL 216 MPV (8.0-11.0) fL 9.4 Immature Gran % % 0.3 Neutrophils % % 74.2 Lymphocytes % % 16.6 Monocytes % % 7.4 Eosinophils % % 1.1 Basophils % % 0.4 Nucleated RBC % (0.0-0.3) % 0.0 Absolute Neutrophils (1.2-6.7) 10^3/uL 8.27 H Absolute Lymphocytes (1.2-3.4) 10^3/uL 1.85 Absolute Monocytes (0.1-0.8) 10^3/uL 0.83 H Absolute Eosinophils (0.0-0.7) 10^3/uL 0.12 Absolute Basophils (0.0-0.2) 10^3/uL 0.04 Sodium (136-145) mmol/L 138 Potassium (3.5-5.1) mmol/L 4.4 Chloride (98-107) mmol/L 100 Carbon Dioxide (21.0-32.0) mmol/L 28.7 Anion Gap (3-11) mmol/L 9.3 BUN (7-18) mg/dL 22 H Creatinine (0.55-1.02) mg/dL 0.7 Est GFR (CKD-EPI 2020) (mL/min/1.73m2) 108.62 Glucose (74-106) mg/dL 103 Calcium (8.5-10.1) mg/dL 8.4 L Magnesium (1.8-2.4) mg/dL 1.9 Total Bilirubin (0.2-1.0) mg/dL 0.5 AST (15-37) U/L 13 L ALT (14-59) U/L 18 Alkaline Phosphatase (46-116) U/L 106 Troponin I (<or=51) ng/L 11 12 Total Protein (6.4-8.2) g/dL 7.6 Albumin (3.4-5.0) g/dL 3.9 TSH (0.36-3.74) uIU/mL 3.56 Medical Decision Making ASSESSMENT AND PLAN Initial Assessment: 44-year-old female here after syncopal episode that occurred just prior to arrival with no sustained trauma. Physical exam unremarkable. Vital signs normal. Differential Diagnosis: - Viral infection, vagal response to nausea - Arrhythmia ED Course: - EKG reviewed and interpreted by me: Please report, sinus bradycardia 54 bpm, normal axis. - IV fluids administered - Labs reviewed: Calcium 8.4, at baseline. Mild leukocytosis noted. Normal troponin and delta troponin. TSH normal. Normal potassium. - Patient reassessed: No complaints, feels well. Patient hemodynamically stable. No arrhythmia noted on cardiac monitoring. Patient ambulating without dizziness. Clinical Impression: - Syncope Disposition: -Patient stable and requesting discharge. - Plan for discharge with close outpatient follow-up with PCP. Recommendation for cardiac monitoring - Follow-Up: Cardiac monitoring recommended This document was written with the assistance of SOCORRO Porter. The patient consented to its use. Lab Data Lab results reviewed: Yes I reviewed the patient's lab results. Labs: Laboratory Tests Range/Units 12/31/24 12/31/24 12:42 13:45 WBC (4.4-10.8) 10^3/uL 11.15 H RBC (3.93-5.22) 10^6/uL 4.85 Hgb (11.2-15.7) g/dL 13.9 Hct (36.0-46.0) % 40.6 MCV (80-95) fL 84 MCH (27.0-33.0) pg 28.7 MCHC (32.0-36.0) % 34.2 RDW (11.7-14.6) % 11.6 L Plt Count (130-400) 10^3/uL 216 MPV (8.0-11.0) fL 9.4 Immature Gran % % 0.3 Neutrophils % % 74.2 Lymphocytes % % 16.6 Monocytes % % 7.4 Eosinophils % % 1.1 Basophils % % 0.4 Nucleated RBC % (0.0-0.3) % 0.0 Absolute Neutrophils (1.2-6.7) 10^3/uL 8.27 H Absolute Lymphocytes (1.2-3.4) 10^3/uL 1.85 Absolute Monocytes (0.1-0.8) 10^3/uL 0.83 H Absolute Eosinophils (0.0-0.7) 10^3/uL 0.12 Absolute Basophils (0.0-0.2) 10^3/uL 0.04 Sodium (136-145) mmol/L 138 Potassium (3.5-5.1) mmol/L 4.4 Chloride (98-107) mmol/L 100 Carbon Dioxide (21.0-32.0) mmol/L 28.7 Anion Gap (3-11) mmol/L 9.3 BUN (7-18) mg/dL 22 H Creatinine (0.55-1.02) mg/dL 0.7 Est GFR (CKD-EPI 2020) (mL/min/1.73m2) 108.62 Glucose (74-106) mg/dL 103 Calcium (8.5-10.1) mg/dL 8.4 L Magnesium (1.8-2.4) mg/dL 1.9 Total Bilirubin (0.2-1.0) mg/dL 0.5 AST (15-37) U/L 13 L ALT (14-59) U/L 18 Alkaline Phosphatase (46-116) U/L 106 Troponin I (<or=51) ng/L 11 12 Total Protein (6.4-8.2) g/dL 7.6 Albumin (3.4-5.0) g/dL 3.9 TSH (0.36-3.74) uIU/mL 3.56 PFSH All Active Problems (Updated 12/31/24 @ 15:30 by Chadwick Granados MD) Syncope (Chronic) Palpitations (Acute) Hypokalemia (Acute) Fatigue (Acute) Myalgia (Acute) Vomiting (Acute) Nausea (Acute) Fever (Acute) Medical History Hypertension GERD (gastroesophageal reflux disease) Hypocalcemia Vitamin D deficiency Ovarian cyst Social History Smoking/Tobacco Use Status: Never Smoking risk assessment performed?: Yes Alcohol Intake: current Alcohol Intake frequency: holidays/special occasions only Substance use type: does not use Do you feel safe at home: Yes Do you feel safe in your relationship?: Yes
== END 2024-12-31 15:51 | disposition home or self-care (01) ==
PROVIDERS: Emergency Provider Student in an Organized Health Care Education/Training Program; PCP Family Medicine
DX: R55 Syncope and collapse (principal); R11.0 Nausea
CPT/HCPCS: 99284; 99283; 36415; 80053; 93005; 96360; 83735; 84443; 84484; 85025; 93010

== ENCOUNTER 2025-01-27 08:16 | Outpatient (CLI) | payer OTHER, SELFPAY | END 2025-01-27 08:17 | disposition home or self-care (01) | PROVIDERS: PCP Family Medicine; Visit Provider Nurse Practitioner Family | DX: R40.4 Transient alteration of awareness (principal) | CPT/HCPCS: 93246 ==

== ENCOUNTER 2025-02-22 07:24 | Outpatient (CLI) | payer OTHER, SELFPAY ==
--- NOTE | 2025-02-22 09:33 | W.CARDEVENT ---
Date of service: 02/22/25 Time of Service: 09:33 Cardiac Event Recorder Referring Provider:: Kaylin Bates Indications:: Palpitations Cardiac Event Note: This is a cardiac event monitor. Patient was monitored for 12 days and 21 hours Rhythm throughout was sinus with an average heart rate of 76. Minimum was 46, maximum 139 There were very rare isolated ventricular ectopic beats There were very rare isolated atrial premature beats. There was 1 self-limited atrial run, 8 beats in duration There was no atrial fibrillation, no high-grade AV block, no pauses greater than 3 seconds. No symptoms were reported
== END 2025-02-22 07:25 | disposition home or self-care (01) ==
LOC: CARDOPNVT 07:24
PROVIDERS: PCP Family Medicine; Visit Provider Internal Medicine Cardiovascular Disease
DX: R40.4 Transient alteration of awareness (principal); I48.91 Unspecified atrial fibrillation; R00.2 Palpitations

== ENCOUNTER 2025-03-09 12:11 | Day surgery (SDC) | payer OTHER, SELFPAY ==
[2025-03-09] MEDS: Lactated Ringers 1,000 ML 80 ML IV (13:35)
[2025-03-09 13:38] VITALS: BP 131/95; PULSE 72; RESP 16; TEMP 36.8; O2SAT 99
--- NOTE | 2025-03-09 14:19 | W.ANESPRE ---
General Info Date of Service Date Performed: 03/09/25 Height: 5 ft 6 in Weight: 68.2 kg Body Mass Index (BMI): 24.3 Surgical Procedure: Operation Date: 03/09/25 13:35 Proposed Procedure Side Surgeon alexandre Bond MD Meds Allergies and Home Medications Allergies Allergy/AdvReac Type Severity Reaction Status Date / Time lisinopril Allergy Severe Headache Verified 03/09/25 13:33 omeprazole AdvReac Unknown itching Verified 03/09/25 13:33 Home Medication ?Medication ?Instructions ?Recorded diltiazem HCl 240 mg capsule,24 240 mg PO DAILY 03/04/19 hr,extended release norgestimate 0.25 mg-ethinyl 1 tab PO DAILY 12/31/24 estradiol 0.035 mg tablet lansoprazole 15 mg capsule,delayed 15 mg PO DAILY 02/23/25 release spironolactone 50 mg tablet 50 mg PO DAILY 02/23/25 Current Visit Medications: Current Medications Generic Name Dose Route Start Last Admin Trade Name Freq PRN Reason Stop Dose Admin Ringer's Solution 1,000 mls @ 80 mls/hr 03/09/25 06:00 IV 03/09/25 23:59 INFUSION ROOPA Sodium Chloride 0 ml 03/09/25 06:00 Normal Saline Flush 10 Ml Syr IV 03/09/25 23:59 PRN PRN Sodium Chloride 0 ml 03/09/25 06:00 Normal Saline 10 Ml Vial IJ 03/09/25 23:59 DIRECTED PRN Sterile Water 0 ml 03/09/25 06:00 Water,Injection,Sterile 10 Ml Vial IJ 03/09/25 23:59 DIRECTED PRN PFSH Active Problems Active Problems: Problem Status Onset Code Palpitations Acute R00.2 Hypokalemia Acute E87.6 Fatigue Acute R53.83 Myalgia Acute M79.10 Vomiting Acute R11.10 Nausea Acute R11.0 Fever Acute R50.9 Medical History Medical History Hypertension GERD (gastroesophageal reflux disease) Hypocalcemia Vitamin D deficiency Ovarian cyst Tobacco Smoking/Tobacco Use Status: Never Passive smoking exposure: No Alcohol Alcohol Intake: current Alcohol intake frequency: holidays/special occasions only Substance Use Substance use: Never Substance use type: does not use Vital Signs and Lab Results Vital Signs Most Recent Vital Signs in EMR: Most Recent Vital Signs Temp Pulse Resp BP Pulse Ox 36.8 C 72 16 131/95 H 99 03/09/25 13:38 03/09/25 13:38 03/09/25 13:38 03/09/25 13:38 03/09/25 13:38 Point of Care Results Point of Care Results: POC- Test(urine) Negative 03/09/25 13:43 Imaging and Studies Imaging and Studies Study information below may be from another EMR and interpreted by another provider. Please see original notes in EMR for more complete details. EKG Summary: EKG PATIENT NAME: Nani Coley UNIT #: [id number] ORDERING PROVIDER: Arianna Granados M.D. PRIMARY CARE PROVIDER: ALEJANDRO DEJESUS DATE/TIME OF SERVICE: 12/31/24 1218 : 1980 PERFORMING LOCATION: ER APPROVED REPORT Exam: Resting ECG Reason for Exam: syncope Patient Location: E HR:54 bpm ECG Measurements Heart Rate 54 AXIS NC 146 P 22 QRSd 101 QRS 5 QT 452 T57 QTc 427 Conclusion Sinus bradycardia...rate< 60 <Electronically signed by ARIANNA GRANADOS MD in [facility]> E-Sign Date: 12/31/24 E-Sign Time: 1534 ADDENDUM APPROVED REPORT Exam: Resting ECG Reason for Exam: syncope Patient Location: E HR:54 bpm ECG Measurements Heart Rate 54 AXIS NC 146 P 22 QRSd 101 QRS 5 QT 452 T57 QTc 427 Conclusion Sinus bradycardia...rate< 60 I have reviewed and I agree with the emergency room physician's ECG interpretation. Electronically signed by: <Electronically signed by Miranda White M.D. in [facility]> 01/04/25 0804 Cosigned by: Anesthesia Assessment and Plan Anesthesia History Personal History: No History of Anesthesia Complications Family History: No Family History of Anesthesia Complications Exercise Tolerance Exercise Tolerance: Metabolic Equivalents>4 Pertinent Negatives Pertinent Negatives: No Symptoms of GERD, No Major Cardiovascular Symptoms or Complaints, No Major Pulmonary Symptoms or Complaints and No History of CVA/TIA Cardiac & Pulmonary Exam Cardiac Exam: Normal S1/S2 Heart Sounds Pulmonary Exam: Clear Bilateral Breath Sounds Implantable Cardiac Device Does patient have a Pacemaker or an ICD?: No Airway Exam Known Difficult Airway: No Mallampati Class: 2 Mouth Opening: Normal (> 3cm) Thyromental Distance: Greater than 3 cm Neck Range of Motion: Full ROM Neck Circumference: Normal Teeth Condition: Normal Dentition ASA Classification ASA Score: ASA 2 Emergency Case?: No NPO Status NPO Status: NPO Clears >2 hours, Solids >8 hours Status Status: Negative HCG Anesthesia Plan Resuscitation Status: Full Code Anesthesia Technique: General Anesthesia Airway Planned: Natural Airway Monitors Used: Standard Monitors
[2025-03-09 14:20] VITALS: BMI 24.3
--- NOTE | 2025-03-09 15:25 | BOWEL_PTH ---
PATIENT: Nani Coley LOC: [facility] U#:[id number] AGE/SX: 44/F ROOM: RE03/09/[address]: Anjana Bond : 1980 BED: DIS: 03/09/2025 SPEC #: [id number] RECD: 03/10/25 12:46 STATUS: JENNY REQ #: [id number] KELSI: 03/09/25 15:[address]: Anjana Bond DEPT: Surgical Specimen RECD BY: Ana Urbano ENTERED: 03/10/25 12:56 SP TYPE: Bowel OTHR DR: Azalea William Tissues: 1 - BIOPSY BOWEL Procedures: GROSS AND MICRO LEVEL 4 Comments: [id number]
[2025-03-09 15:27] VITALS: BP 103/77; PULSE 88; RESP 16; TEMP 36.4; O2SAT 97
--- NOTE | 2025-03-09 15:32 | W.PM.DSUDISC ---
Date of service: 03/09/25 Discharge Plan Disposition Patient Disposition: Home Condition: Good Discharge Details Reason For Visit: Screening colonoscopy Attending Provider: Anjana Bond Primary Care Provider: Azalea William Recommendations for Follow Up Recommended tests to be ordered by follow up provider: Follow up pathology Home Meds and New Rx's Prescriptions: Continued lansoprazole 15 mg capsule,delayed release(DR/EC) 15 mg PO DAILY spironolactone 50 mg tablet 50 mg PO DAILY diltiazem HCl 240 mg capsule,extended release 24 hr 240 mg PO DAILY norgestimate-ethinyl estradiol 0.25-0.035 mg tablet 1 tab PO DAILY Patient Comments: TAKE ONE TABLET BY MOUTH EVERY DAY Discharge Instructions Instructions: Colon polyps Additional Instructions: Your colonoscopy went well today. You did have 1 small polyp which was removed. This polyp will be sent to pathology. Once these results returned we will contact you regarding the results and recommendations for repeat colonoscopy. If you have any questions or concerns please contact the surgery office. 1. If tolerated, consume a soft, low fiber diet for 1-2 days. [address] Do not drive, drink alcohol, operate machinery, make critical decisions, or do activities that require coordination or balance for 24 hours. 3. Because air was put into your colon during the procedure, expelling air from your rectum (passing gas or farting) is normal. 4. You may not have a bowel movement for 1-3 days because of the colonoscopy prep. This is normal. 5. Go directly to the emergency room if you notice any of the following: Develop chills (warm to touch), or if you have a thermometer and your temperature is above 101 Difficulty breathing or difficultly swallowing Persistent vomiting Severe abdominal pain, other than gas cramps Severe chest pain Black, tarry stools Any bleeding ? exceeding one tablespoon 6. Call your physician if the site where your intravenous was started becomes red, swollen, painful, and warm to touch. 7. Your physician has reviewed your pre-procedure medications. Please continue to take those medications as previously ordered. You will be given specific information/education regarding any changes to your medications before leaving. Stand Alone Forms: Portal Information Activity:: Activity as Tolerated Diet:: As Tolerated Discharge Orders Discharge Orders: Discharge Order (Routine); Ordered 03/09/25 Ordered By: Anjana Bond
--- NOTE | 2025-03-09 15:35 | W.COLOREPORT ---
Date of service: 03/09/25 Time of Service: 15:36 Colonoscopy Report Date of procedure: 03/09/25 Pre-op diagnosis general: Screening colonoscopy Post-op diagnosis procedure note: other (Colon polyp) Procedure: Colonoscopy with polypectomy Surgeon: Anjana Bond Anesthesia Type: General:No Airway Estimated blood loss (mL): 1 Pathology: other (Colon polyp at 35cm ) Complications: None Disposition: PACU Indications: Patient is a 44-year-old female who presents for a screening colonoscopy. She denies any changes in bowel habits or family history of colon cancer. Prep: Miralax/Dulcolax Procedure Start Time: 15:05 Procedure End Time: 15:22 Retraction Time: 7 Findings: 0.25 cm colon polyp removed with cold forceps at 35cm. Evidence of rectosigmoid diverticulosis. Procedure Description: The patient was brought to the endoscopy suite and placed in the left lateral decubitus position. After induction of IV sedation, a digital rectal exam was performed. Digital exam was normal. The colonoscope was then passed to the cecum without difficulty. Cecal intubation was confirmed by the identification of the appendiceal orifice and the ileocecal valve. Upon withdrawing the colonoscope, all mucosal surfaces were inspected. The prep was noted to be adequate. At 35cm, there was a 0.25cm polyp, which was removed using cold forceps in its entirety. Specimen was retrieved for pathological analysis. There was no other evidence of mucosal abnormality, polyp or cancer. There was evidence of a few diverticulum in the rectosigmoid colon. Retroflexion in the rectum was unremarkable. The patient tolerated the procedure well with no complications. Postoperatively, the patient was transferred to the recovery room in stable condition. [place] Bowel Prep [place] Bowel Prep Right Colon: 2 Left Colon: 3 Transverse Colon: 3 Total Score: 8
--- NOTE | 2025-03-09 15:53 | W.ANESPOSTOP ---
Postoperative Evaluation Date, Time and Location Date Performed: 03/09/25 Time Performed: 15:29 Patient Location: Day Surgery Unit Vital Signs Most Recent Imported Vital Signs: Most Recent Vital Signs Temp Pulse Resp BP Pulse Ox 36.4 C L 88 16 103/77 97 03/09/25 15:27 03/09/25 15:27 03/09/25 15:27 03/09/25 15:27 03/09/25 15:27 Pain Score Most Recent Pain Score: Most Recent Pain Score Pain Level 0 03/09/25 15:27 Assessment Mental Status: Awake (Alert & Oriented to Patient Baseline) Airway and Respiratory Function: Patent airway with normal (patient baseline) respiratory exam Cardiovascular Function: Hemodynamically Stable Hydration Status: Adequately Hydrated Nausea & Vomiting: No Nausea or Vomiting Pain: Pt. Denies Any Pain Peripheral Nerve Block: Patient did not receive a nerve block
[2025-03-09 15:55] VITALS: BP 119/72; PULSE 76; RESP 16; TEMP 36.4; O2SAT 100
== END 2025-03-09 16:05 | disposition home or self-care (01) ==
PROVIDERS: PCP Family Medicine; Visit Provider Student in an Organized Health Care Education/Training Program
PROC: 0DJD8ZZ Inspection of Lower Intestinal Tract, Via Natural or Artificial Opening Endoscopic (ICD-10-PCS; CPT 45378; principal; 2025-03-09 13:30)
DX: Z12.11 Encounter for screening for malignant neoplasm of colon (principal); K63.5 Polyp of colon; K57.30 Diverticulosis of large intestine without perforation or abscess without bleeding
CPT/HCPCS: 45380; 81025; 88305; J2704